=== PATIENT | male | born 1945 | race Caucasian/White ===

== ENCOUNTER → 2021-04-02 11:30 | Outpatient (BNVA) | payer MEDICARE, OTHER, SELFPAY | PROVIDERS: PCP Internal Medicine; Visit Provider Urology | DX: N40.1 Benign prostatic hyperplasia with lower urinary tract symptoms (principal); R33.9 Retention of urine, unspecified | CPT/HCPCS: 51798; 99212 ==

== ENCOUNTER → 2021-10-02 11:23 | Outpatient (BNVA) | payer MEDICARE, OTHER, SELFPAY | PROVIDERS: PCP Internal Medicine; Visit Provider Urology | DX: N40.1 Benign prostatic hyperplasia with lower urinary tract symptoms (principal); R33.9 Retention of urine, unspecified | CPT/HCPCS: 51798; 99212 ==

== ENCOUNTER → 2022-10-05 11:25 | Outpatient (BNVA) | payer MEDICARE, OTHER, SELFPAY | PROVIDERS: PCP Internal Medicine; Visit Provider Urology | DX: N40.1 Benign prostatic hyperplasia with lower urinary tract symptoms (principal); R33.8 Other retention of urine | CPT/HCPCS: 51798; 99212 ==

== ENCOUNTER 2023-10-28 11:30 | Outpatient (AMB) | payer MEDICARE, OTHER, SELFPAY ==
--- NOTE | 2023-10-28 11:33 | MHC.OFFVIS ---
Intake Intake Visit Reasons: 1Y PSA(psa?) Allergies No Known Allergies [No Known Allergies*] Allergy (Verified 10/05/22 11:33) PFSH Medical History BPH loc w urin obs/LUTS H/O urinary retention Hernia High cholesterol Leukemia Surgical History H/O stem cell transplant History of surgery Social History Patient Tobacco Use Status: Former Tobacco user Coding
--- NOTE | 2023-10-28 11:35 | MHC.OFFVIS ---
Intake Intake Visit Reasons: 1Y pvr Intake Note: Patient is Present for Follow Up Urology Medication: Tamsulosin Antibiotic Allergies:none Blood Thinners: none PVR: 16 Allergies No Known Allergies [No Known Allergies*] Allergy (Verified 10/28/23 11:36) Medication List - Last Reconciled 10/28/23 by Riley Barnett MD atorvastatin 40 mg PO BEDTIME carvedilol 6.25 mg PO BID pantoprazole 40 mg PO DAILY tamsulosin 0.4 mg PO BEDTIME 90 days HPI HPI Comments History of Present Illness Details Alexander is a pleasant male. He is a patient of Dr. Daly. Seen for the following urologic conditions - lower urinary tract symptoms Effective bladder emptying with Flomax 0.4 PVR 16 Minimal nocturia Twelve month follow-up Lower urinary tract symptom Previous episode of postoperative urinary retention Current therapy Flomax Associated side effects - none PSA - 05/12 1.7 Low PSA age over 75 can be checked periodically Therapeutic plan - remain on Flomax with yearly PVR PFSH Medical History High cholesterol Leukemia H/O urinary retention Hernia BPH loc w urin obs/LUTS Surgical History History of surgery H/O stem cell transplant Social History Patient Tobacco Use Status: Former Tobacco user Review of Systems Const Denies chills and Denies fever(s) Card Reports no additional complaints and Denies syncope Resp Denies cough GI Denies abdominal pain and Denies heartburn Reports as per HPI and Denies change in libido Neuro Denies syncope Psych Denies change in libido Endo Denies change in libido Physical Exam Const General: cooperative, healthy appearing, comfortable and no acute distress Orientation/consciousness: patient oriented x3 HEENT Face and sinus: Yes normal facial exam Mouth: moist mucous membranes Neck Neck: Yes normal visual inspection, Yes full ROM and Yes trachea midline Chest Chest palpation & inspection: normal inspection of the chest Resp Effort & Inspection: normal respiratory effort, able to speak in complete sentences and no respiratory distress GI Inspection: Yes normal to inspection Back/Spine/Pelvis Cervical Spine: normal cervical lordosis Thoracic/Lumbar Spine: thoracic and lumbar spine normal to inspection Skin General skin exam: no rashes or lesions noted Neuro General: patient oriented x3, gait normal, tone normal and moves all extremities Extrem General: Yes normal to inspection and Yes capillary refill normal Office Procedures Post Void Residual Post Residual Void Post Void Residual (PVR): 16 [id number] Void Residual by ultrasound Assessment & Plan Assessment & Plan (1) Incomplete emptying of bladder due to benign prostatic hyperplasia: Code(s): N40.1 - Benign prostatic hyperplasia with lower urinary tract symptoms; R33.9 - Retention of urine, unspecified Plan 12 month follow-up Orders: Orders AMB Post Void Residual by ultrasound Today N40.1 - Benign prostatic hyperplasia with lower urinary tract symptoms, R33.9 - Retention of urine, unspecified Medications: Refilled tamsulosin 0.4 mg PO BEDTIME 90 caps 3RF 90 days N40.1 - Benign prostatic hyperplasia with lower urinary tract symptoms, R33.9 - Retention of urine, unspecified Patient Instructions: Imaging studies, laboratory and physical exam results were discussed and reviewed in detail. No major barriers to patient understanding were identified. An opportunity to ask questions regarding the treatment plan was provided. All questions were answered. The patient expressed understanding and agreement with the above treatment plan. The patient is aware they should contact our office by phone for worsening of their current condition or the appearance of new urologic symptoms. Compliance is encouraged with any medications and followup testing that is ordered. It is a privilege to participate in the urologic care of your patient. If you have any questions or concerns regarding treatment for the above conditions, or other urologic issues, please do not hesitate to contact me. The office telephone contact is [phone]. This note is constructed using voice recognition software. While every effort has been made to ensure accuracy chief wellness officer errors may have been included. Yours sincerely, Dr Riley Barnett MD, [facility] - Urology Providers of Expert, Compassionate Care for the Genitourinary System Coding Level of Care Code Est Pt Level 4 (36442) Diagnoses Incomplete emptying of bladder due to benign prostatic hyperplasia N40.1; R33.9 CPT Codes Post Residual Void - PVR CPT Code: 14232-Xaig Void Residual by ultrasound ([id number])
== END 2023-10-28 12:05 | disposition home or self-care (01) ==
PROVIDERS: Visit Provider Urology
DX: N40.1 Benign prostatic hyperplasia with lower urinary tract symptoms (principal); R33.9 Retention of urine, unspecified
CPT/HCPCS: 99213

== ENCOUNTER → 2023-10-28 11:30 | Outpatient (BNVA) | payer MEDICARE, OTHER, SELFPAY | PROVIDERS: Visit Provider Urology | DX: N40.1 Benign prostatic hyperplasia with lower urinary tract symptoms (principal); R33.9 Retention of urine, unspecified | CPT/HCPCS: 51798; 99212 ==

== ENCOUNTER 2024-10-30 11:36 | Outpatient (AMB) | payer MEDICARE, OTHER, SELFPAY ==
--- NOTE | 2024-10-30 11:44 | A.OFFVIS_ITS ---
Intake Visit Reasons: 1y/PVR Intake Note: Patient is present for 1Y/PVR Urology Medication:TAMSULOSIN Antibiotic Allergy:NONE Blood Thinner:NONE TODAY'S PVR:0ML'S Individual Pension Consultant Required: No Allergies No Known Allergies [No Known Allergies*] Allergy (Verified 10/30/24 11:44) HPI Comments Details: Alexander is a pleasant male. He is a patient of Dr. Daly. Seen for the following urologic conditions - lower urinary tract symptoms Yearly follow-up Remains on Flomax 0.4 PVR 20cc Lower urinary tract symptom Previous episode of postoperative urinary retention Current therapy Flomax Associated side effects - none PSA - 05/12 1.7 Low PSA age over 75 can be checked periodically Therapeutic plan - remain on Flomax with yearly PVR PFSH Medical History High cholesterol Leukemia H/O urinary retention Hernia BPH loc w urin obs/LUTS Surgical History History of surgery H/O stem cell transplant Social History Patient Tobacco Use Status: Former Tobacco user Office Procedures Post Void Residual Post Residual Void Post Void Residual (PVR): 0 [id number] Void Residual by ultrasound Results AMB Urinalysis, Automated UA Leukoctes 0 Kailee/uL Last Edit by KRISTAN Del Rio on 10/30/24 11:54 UA Nitrite Negative Last Edit by KRISTAN Del Rio on 10/30/24 11:54 UA Urobilinogen 0.2 mg/dL Last Edit by KRISTAN Del Rio on 10/30/24 11:5 4 UA Protein 15 mg/dL Last Edit by KRISTAN Del Rio on 10/30/24 11:54 UA pH 6.0 Last Edit by KRISTAN Del Rio on 10/30/24 11:54 UA Blood 0 Nacho/uL Last Edit by KRISTAN Del Rio on 10/30/24 11:54 UA Specific [place] 1.015 Last Edit by KRISTAN Del Rio on 10/30/24 11: 54 UA Ketone Negative Last Edit by KRISTAN Del Rio on 10/30/24 11:54 UA Bilirubin 0 mg/dL Last Edit by KRISTAN Del Rio on 10/30/24 11:54 UA Glucose 0 mg/dL Last Edit by KRISTAN Del Rio on 10/30/24 11:54 Results Reviewed Results Reviewed: Laboratory Last Values Urine pH (Auto) 6.0 10/30/24 11:54 Specific [place] (Auto) 1.015 10/30/24 11:54 Urine Protein (Auto) 15 mg/dL 10/30/24 11:54 Glucose (UA)(Auto) 0 mg/dL 10/30/24 11:54 Urine Ketones (Auto) Negative 10/30/24 11:54 Urine Blood (Auto) 0 Nacho/uL 10/30/24 11:54 Urine Nitrite (Auto) Negative 10/30/24 11:54 Urine Bilirubin (Auto) 0 mg/dL 10/30/24 11:54 Urine Urobilinogen (Auto) 0.2 mg/dL 10/30/24 11:54 Leukocyte Esterase (Auto) 0 Kailee/uL 10/30/24 11:54 Assessment & Plan Assessment & Plan Orders: Orders AMB Urinalysis Automated Today Z13.9 - Encounter for screening, unspecified Coding CPT Codes Post Residual Void - PVR CPT Code: 86282-Xupy Void Residual by ultrasound ([id number])
== END 2024-10-30 12:08 | disposition home or self-care (01) ==
PROVIDERS: PCP Internal Medicine; Visit Provider Urology
DX: Z13.9 Encounter for screening, unspecified (principal)

== ENCOUNTER → 2024-10-30 11:36 | Outpatient (BNVA) | payer MEDICARE, OTHER, SELFPAY | PROVIDERS: PCP Internal Medicine; Visit Provider Urology | DX: N40.1 Benign prostatic hyperplasia with lower urinary tract symptoms (principal); R33.9 Retention of urine, unspecified | CPT/HCPCS: 51798; 81003; 99212 ==